=== PATIENT | male | born 2000 | race Two or more races ===

== ENCOUNTER 2022-07-03 03:21 | Emergency (ER) | payer OTHER ==
[~2022-07-03] VITALS: Ht 167.6 cm; Wt 75.0 kg
[2022-07-03 03:30] VITALS: BP 140/78
== END 2022-07-03 06:35 | disposition left against medical advice (07) ==
LOC: EDBD 03:21 → ER 03:21
DX: F41.9 Anxiety disorder, unspecified (principal); Z53.21 Procedure and treatment not carried out due to patient leaving prior to being seen by health care provider